=== PATIENT | female | born 2000 | race Caucasian/White ===

== ENCOUNTER 2021-10-18 19:31 | Emergency (ER) | payer SELFPAY ==
[2021-10-18] MEDS ORDERED: Ondansetron ODT 4 MG TAB ONE (20:19)
[2021-10-18] MEDS ORDERED: Acetaminophen 500 MG TAB ONE (20:20)
[2021-10-18 20:29] LABS: SARS-CoV-2 NAA Rapid Test Not Detected (NotDetected)
[2021-10-18 20:41] LABS: Pregnancy Test - Urine (BHCG) Negative (Negative); Pregu Control Background? CLEAR/WHITE (CLR/WHITE); Pregu Control Bar Appear? YES (CONTROL BAR); Specific Gravity 1.015 (1.002-1.036)
== END 2021-10-18 21:20 | disposition home or self-care (01) ==
LOC: CSHERS 19:31
DX: J10.1 Influenza due to other identified influenza virus with other respiratory manifestations (principal); Z20.822 Contact with and (suspected) exposure to COVID-19
CPT/HCPCS: 71045; 81025; Q0162

== ENCOUNTER 2021-10-20 13:54 | Emergency (ER) | payer SELFPAY | END 2021-10-20 15:15 | disposition home or self-care (01) | LOC: CSHERS 13:54 | DX: J11.1 Influenza due to unidentified influenza virus with other respiratory manifestations (principal) | CPT/HCPCS: 71045 ==